=== PATIENT | female | born 1955 | race Caucasian/White ===

== ENCOUNTER 2020-11-10 18:07 | Emergency (ER) | payer MEDICARE ==
[~2020-11-10] VITALS: Ht 167.6 cm; Wt 64.2 kg
--- NOTE | 2020-11-10 18:45 | PHYS DOC ---
Past History Additional Past Medical Histor: vision, foot sore Past Surgical History: Cholecystectomy Alcohol Use: None Adult General Chief Complaint Chief Complaint: NEURO SYMPTOMS/DEFICITS HPI HPI Patient is a 65-year-old female with a past medical history significant for insulin-dependent diabetes and high hypertension who presents with a chief compl aint of slurred speech and facial droop. States that she woke up this morning with it, noticed that it was hard to make words with her mouth and seemed like the right side of her mouth was drooping a little bit. States that when she walks she feels like she is going to fall down but is not dizzy. States she just feels like she cannot walk without falling. States she is never had anything like this before. States she did recently have a left-sided lower extremity angioplasty for coronary artery disease/peripheral artery disease about a month ago and is on a blood thinner but cannot remember the name. States she also takes aspirin. Denies headache, changes in vision, neck pain, chest pain, shortness of breath, abdominal pain, nausea, vomiting, dysuria, hematuria, blood in the stool or diarrhea. Denies any known ill contacts. Denies any recent trauma or travels. Denies any new or discontinued medications. Review of Systems Review of Systems Review of systems otherwise unremarkable except noted in HPI. Physical Exam Physical Exam Constitutional: Well developed, well nourished, no acute distress, non-toxic appearance. [] HENT: Normocephalic, atraumatic, bilateral external ears normal, oropharynx moist, no oral exudates, nose normal. [] Eyes: PERRLA, EOMI, conjunctiva normal, no discharge. [] Neck: Normal range of motion, no tenderness, supple, no stridor. [] Cardiovascular:Heart rate regular rhythm, no murmur [] Lungs & Thorax: Bilateral breath sounds clear to auscultation [] Abdomen: Bowel sounds normal, soft, no tenderness, no masses, no pulsatile masses. [] Skin: Warm, dry, no erythema, no rash. [] Back: No tenderness, no CVA tenderness. [] Extremities: No tenderness, no cyanosis, no clubbing, ROM intact, no edema. [] Neurologic: Alert and oriented X 3, GCS of 15, extremities with normal motor function and sensation. Patient able to stand but feels like she is going to fall. No truncal instability. Right facial droop and mild dysarthria. NIH of 3 Psychologic: Affect normal, judgement normal, mood normal. [] Current Patient Data Vital Signs Vital Signs Date Time Temp Pulse Resp B/P (MAP) Pulse Ox O2 Delivery O2 Flow Rate FiO2 11/10/20 18:13 98.5 91 16 168/56 (93) 98 Room Air EKG EKG [] Radiology/Procedures Radiology/Procedures [] Heart Score C/O Chest Pain: No Risk Factors: Risk Factors: DM, Current or recent (<one month) smoker, HTN, HLP, family history of CAD, obesity. Risk Scores: Risk Factors: DM, Current or recent (<one month) smoker, HTN, HLP, family history of CAD, obesity. Course & Med Decision Making Course & Med Decision Making Patient is a 65-year-old female who presents to the emergency department with some dysarthria, facial droop and gait instability Vital signs notable for hypertension. Physical exam noted above. Patient placed on the monitor with IV access established. Patient's symptoms started this morning when she woke up and is currently approximately 11 hours out. Laboratory analysis not concerning. However CT of the head and neck with mu ltifocal calcified atheromatous plaques involving the left carotid system to the greatest degree and 50% on the right. On reevaluation patient still with right facial droop and dysarthria. Discussed all findings with family and recommended admission to the hospital for continued evaluation, and treatment and evaluation by neurologist and need for MRI. Family grateful, verbalized understanding and agreed with plan of transfer and admission. 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 Dragon Disclaimer Dragon Disclaimer This electronic medical record was generated, in whole or in part, using a voice recognition dictation system. Departure Departure: Impression: Primary Impression: Dysarthria Additional Impressions: Facial droop Gait instability Peripheral artery disease Disposition: 02 SHORT TERM HOSPITAL Admitting Physician: Other Condition: STABLE Problem Qualifiers SHAINA KNOTT MD Nov 10, 2020 18:45
[2020-11-10 18:58] LABS: BASO # 0.1 x10^3/uL (0.0-0.2); BASO % 1 % (0-3); EOS # 0.2 x10^3/uL (0.0-0.7); EOS % 2 % (0-3); LYMPH # 1.6 x10^3/uL (1.0-4.8); LYMPH % 19 % (24-48); MEAN CORPUSCULAR HEMOGLOBIN 30 pg (25-35); MEAN CORPUSCULAR HGB CONC 33 g/dL (31-37); MEAN CORPUSCULAR VOLUME 90 fL (79-100); MONO # 0.6 x10^3/uL (0.0-1.1); MONO % 7 % (0-9); NEUT % 71 % (31-73); PLATELET COUNT 336 x10^3/uL (140-400); RED BLOOD COUNT 3.67 x10^6/uL (3.50-5.40); RED CELL DISTRIBUTION WIDTH 14.5 % (11.5-14.5); WHITE BLOOD COUNT 8.4 x10^3/uL (4.0-11.0)
[2020-11-10] MEDS: IOHEXOL 350 MG/ML 100 ML VIAL. IV ONE (19:05)
[2020-11-10 19:11] LABS: CALCIUM 9.2 mg/dL (8.5-10.1); CREATININE 1.3 mg/dL (0.6-1.0)
[2020-11-10 19:17] LABS: ALBUMIN 3.8 g/dL (3.4-5.0); ALBUMIN/GLOBULIN RATIO 1.2 (1.0-1.7); MAGNESIUM 2.1 mg/dL (1.8-2.4); TOTAL BILIRUBIN 0.4 mg/dL (0.2-1.0); TOTAL PROTEIN 6.9 g/dL (6.4-8.2)
--- NOTE | 2020-11-10 19:45 | EKG ---
[address] [address] Test Date: 2020-11-10 Test Time: 19:30:45 Pat Name: DWAINE GUZMÁN Department: Room: Gender: F [employer] Solderer: KASSIDY : 1955 Requested By: SHAINA KNOTT Order Number: [id number] Reading MD: Lionel Avelar Measurements Intervals [place] Rate: 91 P: 25 MI: 140 QRS: 64 QRSD: 92 T: 56 QT: 374 QTc: 462 Interpretive Statements SINUS RHYTHM NORMAL ECG RI6.02 No previous ECG available for comparison Electronically Signed On 11-20-2020 17:01:14 CDT by Lionel Avelar
--- NOTE | 2020-11-10 19:49 | RAD ---
Exam: Chest one view INDICATION: Chest pain TECHNIQUE: Frontal view of the chest Comparisons: None FINDINGS: The cardiomediastinal silhouette and pulmonary vessels are within normal limits. The lung and pleural spaces are clear. IMPRESSION: No acute cardiopulmonary process. Electronically signed by: Dania Field MD (11/10/2020 7:47 PM) [facility]
--- NOTE | 2020-11-10 20:15 | RAD ---
STUDY: CT angiography of the head and neck INDICATION: Facial droop. COMPARISON: None. TECHNIQUE: Axial CT imaging of the head and neck utilizing angiography protocol and performed after t he intravenous administration of 75 cc Omnipaque 300 contrast. Precontrast imaging through the head w as performed as well. Multiplanar reformats and 3D MIP acquisitions were obtained. Encountered areas of stenosis are measured per NASCET criteria. One or more of the following individualized dose reduction techniques were utilized for this examinat ion: 1. Automated exposure control 2. Adjustment of the mA and/or kV according to patient size 3. Use of iterative reconstruction technique. FINDINGS: CT HEAD: No acute intracranial hemorrhage. No localized mass effect, midline shift or hydrocephalus. Cortical thompson-white matter interface is maintained. The deep thompson nuclei are well delineated. Possible subtle white matter findings most frequently related to chronic microvascular ischemic change. Carotid sipho n calcific atherosclerosis. Left orbital surgical changes. Intact calvarium. No fluid within the paranasal sinuses. Normally aera brett mastoid air cells. CTA NECK: Arch/Proximal Great Vessels: Multifocal calcified and noncalcified atheromatous plaque. No dissection at the arch. Traditional arch branching pattern. No flow-limiting stenosis at the origins. The subcl vivian arteries are patent. Calcified and noncalcified atheromatous plaque at the far distal left comm on carotid artery. No significant plaque on the right. Carotid Bifurcation/Cervical ICA: Left more so than right calcified and noncalcified plaque. Nominal luminal dimension on the left at the bifurcation of 2.5 mm corresponding to a 50 percent stenosis. No stenosis on the right. Vertebral Arteries: Patent origins. The left vertebral artery is dominant. No stenosis or dissection identified throughout the neck. CTA HEAD: Posterior Circulation: Both intracranial vertebral arteries are patent and contribute to basilar flow . The basilar artery is patent. physiology on the left. The adequately assessed posterior cereb ral artery branch vessels are patent. Anterior Circulation: Bilateral carotid siphon calcific atherosclerosis in addition to supraclinoid c alcifications on the right. Close assessment of resultant stenosis is made difficult by bolus timing but there is estimated 50 percent stenosis approaching the carotid terminus on the right. No central occlusion or flowing stenosis of the middle or anterior cerebral arteries. Veins: Patent dural sinuses. MISCELLANEOUS: Multifactorial cervical spine degenerative changes with central canal narrowing favored greatest at C 5-C6 and C6-C7 which may be moderate. No severe osseous narrowing of the neural foramina. IMPRESSION: CT Head: 1. No acute intracranial hemorrhage or CT evidence for an acute cortical infarction. CT Angio Neck: 1. Multifocal calcified and noncalcified atheromatous plaque involving the left carotid system to th e greatest degree. At the left carotid bifurcation maximum stenosis of 50 percent. No notable stenosi s elsewhere. No carotid or vertebral artery dissection. CT Angio Head: 1. Right more so than left calcific atherosclerosis of the intracranial internal carotid arteries. Es timated 50 percent stenosis of the right ICA approaching the carotid terminus. 2. No central flow-limiting stenosis or occlusion of the anterior or posterior cerebral circulation. If there is concern for a recent ischemic event consider MRI. Electronically signed by: NOHEMY YADAV MD (11/10/2020 8:13 PM) [facility]
[2020-11-10 20:16] LABS: BACTERIA,URINE FEW /HPF (0-FEW); BILIRUBIN,URINE NEG (NEG); CLARITY,URINE HAZY; COLOR,URINE YELLOW; GLUCOSE,URINE 500 mg/dL (NEG); HYALINE CASTS, URINE OCC /HPF; NITRITE,URINE NEG (NEG); RBC,URINE 0 /HPF (0-2); SQUAMOUS EPITHELIAL CELL,UR OCC /LPF; UROBILINOGEN,URINE 0.2 mg/dL (0.2 mg/dL)
[2020-11-10 22:25] VITALS: BP 140/82
== END 2020-11-10 22:30 | disposition short-term general hospital (02) ==
LOC: ER 18:07
DX: R47.1 Dysarthria and anarthria (principal); R29.810 Facial weakness; I73.9 Peripheral vascular disease, unspecified; Z90.49 Acquired absence of other specified parts of digestive tract
CPT/HCPCS: 36415; 70450; 70496; 70498; 71045; 80053; 81001; 83735; 84484; 85025; 87086; 93005; 99285; Q9967